=== PATIENT | female | born 1980 | race Caucasian/White ===

== ENCOUNTER 2020-09-16 19:23 | Emergency (ER) | payer BC ==
--- NOTE | 2020-09-16 20:06 | EDM.PDOC ---
ED HPI GENERAL MEDICAL PROBLEM - General Chief Complaint: Neurological Problem Stated Complaint: NUMBNESS IN HANDS AND NECK Time Seen by Provider: 09/16/20 19:34 Source of Information: Reports: Patient History Limitations: Reports: No Limitations - History of Present Illness INITIAL COMMENTS - FREE TEXT/NARRATIVE: Mrs. Hilliard is a pleasant 39-year-old woman who now presents the ED stating that she has had tingling and numbness of her right upper extremity, from the blow to the hand, for about 2 months. She feels that her right hand has been weak for the past 2 weeks. She reports similar symptoms in her left hand, although not as severe. She states that she saw her PCP, in [place], about this issue, and that she has undergone an MRI of her neck, which demonstrates severe cervical stenosis, and electrical conduction studies of both of her extremities, confirming carpal tunnel syndrome. She states that she has been told that she has permanent nerve damage, however, she also states that her PCP did not suggest that she undergo cervical surgery or carpal tunnel release. She states that she has been taking abpn-eal-[id number] ibuprofen, without adequate relief of her symptoms, and she would now like me to make her pain go away. Here in the ED, the patient's initial BP is found to be mildly elevated at 159/89, otherwise, she is hemodynamically stable, afebrile. The patient reports that in addition to the above symptoms, she has been experiencing nausea, headaches, balance issues, and insomnia. The patient's PCP is in [place]. Right Hand Pain Score (Numeric/FACES): 8 - Related Data Allergies Allergy/AdvReac Type Severity Reaction Status Date / Time No Known Allergies Allergy Verified 09/16/20 19:39 Past Medical History Musculoskeletal History: Reports: Other (See Below) (Cervical stenosis. Bilateral carpal tunnel syndrome.) Neurological History: Reports: Seizure (untreated) Psychiatric History: Reports: Anxiety (untreated), Depression (untreated) Endocrine/Metabolic History: Reports: Obesity/BMI 30+ - Past Surgical History HEENT Surgical History: Reports: Oral Surgery (edentulous) Female Surgical History: Reports: Tubal Ligation Musculoskeletal Surgical History: Reports: Arthroscopic Knee (bilateral), Other (See Below) (Right knee ACL repair, open) Social & Family History - Tobacco Use Tobacco Use Status *Q: Current Every Day Tobacco User Years of Tobacco use: 19 Packs/Tins Daily: 1 Tobacco Use Comment: Started smoking at 20 yrs old - Caffeine Use Caffeine Use: Reports: Energy Drinks - Alcohol Use Alcohol Use History: Yes Alcohol Use Frequency: Socially - Recreational Drug Use Recreational Drug Use: No - Living Situation & Occupation Living situation: Reports: , with Spouse, with Family (2 kids) Occupation: Unemployed ED ROS GENERAL - Review of Systems Review Of Systems: Comprehensive ROS is negative, except as noted in HPI. ED EXAM, GENERAL - Physical Exam Exam: See Below Exam Limited By: No Limitations General Appearance: Alert, WD/WN, No Apparent Distress Eye Exam: Bilateral Eye: EOMI, Normal Inspection Ears: Normal External Exam, Hearing Grossly Normal Nose: Normal Inspection Throat/Mouth: Normal Voice, No Airway Compromise Head: Atraumatic, Normocephalic Neck: Normal Inspection, Full Range of Motion Respiratory/Chest: No Respiratory Distress, Lungs Clear, Normal Breath Sounds, No Accessory Muscle Use Cardiovascular: Normal Peripheral Pulses, Regular Rate, Rhythm, No Edema, No Gallop, No JVD, No Murmur, No Rub Peripheral Pulses: 3+: Radial (L), Radial (R) GI/Abdominal: Normal Bowel Sounds, Soft, Non-Tender, No Organomegaly, No Distention, No Abnormal Bruit, No Mass Back Exam: Normal Inspection, Full Range of Motion, NT Extremities: Normal Inspection, Normal Range of Motion, Non-Tender (hands), No Pedal Edema, Normal Capillary Refill (<2 secs) Neurological: Alert, Oriented, Normal Cognition, No Motor/Sensory Deficits Psychiatric: Normal Affect Skin Exam: Warm, Dry, Intact, Normal Color, No Rash Course - Vital Signs Last Recorded V/S: Last Vital Signs Temp 36.7 C 09/16/20 19:33 Pulse 81 09/16/20 19:33 Resp 12 09/16/20 19:33 BP 159/89 H 09/16/20 19:33 Pulse Ox - Re-Assessments/Exams Free Text/Narrative Re-Assessment/Exam: 09/16/20 20:01 As above, the patient states that she has had 2 weeks of tingling and numbness to her bilateral upper extremities, worse on the right than the left, but at the same time, tells me that she has undergone MRIs confirming spinal stenosis and nerve conduction studies confirming bilateral carpal tunnel syndrome, for I suspect that this is been going on for much longer than 2 weeks. She states that she has been taking ibuprofen, but that she just cannot take the pain. I suspect that she is looking for pain medication, which I do not feel is appropriate in this setting. Instead, recommend that she take xehl-rxk-[id number] ibuprofen, and I will refer her to Dr. Gutiérrez, who can address her carpal tunnel syndrome, and also discuss how to to address her cervical stenosis. At that time, she can then decide if she wants to have surgery here in [place], or back in [place]. Departure - Departure Time of Disposition: 20:06 Disposition: Home, Self-Care 01 Condition: Good Clinical Impression: Radiculopathy affecting upper extremity - Discharge Information *PRESCRIPTION DRUG MONITORING PROGRAM REVIEWED*: Not Applicable *COPY OF PRESCRIPTION DRUG MONITORING REPORT IN PATIENT BHUMIKA: Not Applicable Instructions: Radicular Pain Referrals: PCP,Not In Area [Primary Care Provider] - Avi Gutiérrez MD [Physician] - Taylor Westfall NP [Nurse Practitioner] - Forms: ED Department Discharge Additional Instructions: You were seen in the emergency room for tingling, numbness, and weakness of your upper extremities, worse on the right than the left, in the setting of cervical stenosis and bilateral carpal tunnel syndrome. We recommend that you take rydc-wix-ptfelwb ibuprofen, 3 tablets (600 mg) up to every 8 hours, with food, as needed for discomfort. We recommend that you follow-up with the Orthopedic Surgeon Dr. Avi Gutiérrez at the next available appointment. We recommend that you establish a PCP. Please call the office of Taylor Westfall NP, to make an appointment to see either her, or one of the other providers in the clinic. If any other problems, please do not hesitate to return to the ER. Sepsis Event Note (ED) - Evaluation Sepsis Screening Result: No Definite Risk - Focused Exam Vital Signs: Vital Signs Temp Pulse Resp BP 09/16/20 19:33 36.7 C 81 12 159/89 H
== END 2020-09-16 20:19 | disposition home or self-care (01) ==
LOC: JD.ED 19:23
DX: M54.12 Radiculopathy, cervical region (principal); E66.9 Obesity, unspecified; Z68.30 Body mass index [BMI] 30.0-30.9, adult
CPT/HCPCS: 99282; 99283

== ENCOUNTER 2024-08-05 17:09 | Emergency (ER) | payer BC, OTHER | END 2024-08-05 19:24 | disposition home or self-care (01) | LOC: JD.ED 17:09 | DX: R51.9 Headache, unspecified (principal); M54.2 Cervicalgia; E66.9 Obesity, unspecified; F17.210 Nicotine dependence, cigarettes, uncomplicated; Z68.32 Body mass index [BMI] 32.0-32.9, adult; Y04.8XXA Assault by other bodily force, initial encounter | CPT/HCPCS: 70450; 70450-26; 72125; 72125-26; 99284 ==